=== PATIENT | male | born 1950 | race Caucasian/White ===

== ENCOUNTER → 2016-04-06 | Outpatient (CLI) | payer OTHER ==
--- NOTE | 2016-04-06 16:14 | DX ---
Chest, PA and Lateral History:Cough, congestion, sinus pressure x1 month , R05, R93.8, follow-up pulmonary nodule COMPARISON: April 02, 2014, chest CT April 17, 2014 Findings: A small nodular density overlying the anterior right second rib is again present and unchan ged. It did not have a correlate on a CT of April 17, 2014 and is consistent with a benign finding, that perhaps represents a blood vessel on end. No new pulmonary nodules are identified. There is chr onic or recurrent bronchial wall thickening consistent with airways disease there is no focal infiltr ate, consolidation or pleural effusion. Tortuosity of the descending thoracic aorta is stable. There is no mass or adenopathy. Heart size and pulmonary vascularity remain normal. Impression: 1. Chronic or recurrent airways disease. No pneumonia. 2. Stable, benign right upper lung nodular density x 2 years, possibly representing a blood vessel o n end. No further imaging workup is required.
== END ==
LOC: FIMAGING 13:00
PROVIDERS: ATTEND Family Medicine
DX: J42 Unspecified chronic bronchitis (principal); R93.8 Abnormal findings on diagnostic imaging of other specified body structures

== ENCOUNTER → 2017-02-14 | Outpatient (CLI) | payer OTHER | LOC: FIMAGING 11:53 | PROVIDERS: ATTEND Family Medicine | DX: R05 Cough (principal); R50.9 Fever, unspecified ==